=== PATIENT | male | born 1995 | race African-American/Black ===

== ENCOUNTER 2018-11-27 22:01 | Emergency (ER) | payer BC ==
[2018-11-27 22:16] VITALS: TEMP 98; BMI 35.4
[2018-11-28] MEDS ORDERED: ACETAMINOPHEN 325 MG TABLET (FP) PO ONE (00:29)
[2018-11-28] MEDS ORDERED: METOCLOPRAMIDE HCL INJECTION 10 MG/2 ML VIAL IM ONE (00:30)
[2018-11-28] MEDS ORDERED: ACETAMINOPHEN 325 MG TABLET (FP) ONE (00:39)
[2018-11-28] MEDS ORDERED: METOCLOPRAMIDE HCL INJECTION 10 MG/2 ML VIAL ONE (00:39)
--- NOTE | 2018-11-28 01:09 | PDOC ---
History of Present Illness - General Chief Complaint: Chest Pain Stated Complaint: CHEST PAIN HEADACE Time Seen by Provider: 11/27/18 23:55 History Source: Patient Exam Limitations: No Limitations Past History - Past Medical History Allergies/Adverse Reactions: Allergies Allergy/AdvReac Type Severity Reaction Status Date / Time No Known Allergies Allergy Verified 11/27/18 22:16 Home Medications: Ambulatory Orders Albuterol Sulfate Inhaler - [Ventolin HFA Inhaler -] 1 - 2 inh PO QID PRN #1 inhaler 03/05/18 Asthma: Yes COPD: No - Suicide/Smoking/Psychosocial Hx Smoking Status: No Smoking History: Never smoked Have you smoked in the past 12 months: No Number of Cigarettes Smoked Daily: 0 Information on smoking cessation initiated: No Hx Alcohol Use: No Drug/Substance Use Hx: No Substance Use Type: None *Physical Exam - Vital Signs Last Vital Signs Temp Pulse Resp BP Pulse Ox 98.0 F 95 H 16 150/87 100 11/27/18 22:14 11/27/18 22:14 11/27/18 22:14 11/27/18 22:14 11/27/18 22:14 - Physical Exam General Appearance: No: Apparent Distress Neck: positive: Supple Respiratory/Chest: positive: Lungs Clear, Normal Breath Sounds. negative: Chest Tender, Respiratory Distress Cardiovascular: positive: Regular Rhythm, Regular Rate, S1, S2. negative: Murmur Gastrointestinal/Abdominal: positive: Normal Bowel Sounds, Soft. negative: Tender, Distended, Guarding, Rebound Extremity: negative: Pedal Edema, Calf Tenderness Integumentary: positive: Normal Color Neurologic: positive: Fully Oriented, Alert, Normal Mood/Affect Moderate Sedation - Procedure Monitoring Vital Signs: Procedure Monitoring Vital Signs Temperature 98.0 F 11/27/18 22:14 Pulse Rate 95 H 11/27/18 22:14 Respiratory Rate 16 11/27/18 22:14 Blood Pressure 150/87 11/27/18 22:14 O2 Sat by Pulse Oximetry (%) 100 11/27/18 22:14 ED Treatment Course - RADIOLOGY Radiology Studies Ordered: Category Date Time Status CHEST PA & LAT [RAD] Stat Radiology 11/28/18 00:17 Taken - Medications Given in the ED: ED Medications Discontinued Medications Generic Name Dose Route Start Last Admin Trade Name Freq PRN Reason Stop Dose Admin Acetaminophen 975 mg 11/28/18 00:29 11/28/18 00:45 Tylenol - PO 11/28/18 00:30 975 mg ONCE ONE Administration Metoclopramide HCl 10 mg 11/28/18 00:30 11/28/18 00:46 Reglan Injection - IM 11/28/18 00:31 10 mg ONCE ONE Administration Medical Decision Making - Medical Decision Making 23 y/o M with hx of asthma, nonsmoker, presents with generalized RIDER from last week, constant in nature. Tried taking Tylenol which temporarily helped. States his job checked his BP last week and it was elevated (states it was checked on 2 separate days). Today, mentions having sharp nonradiating L sided CP, intermittent in nature, nonexertional and not worsened or relieved by anything. Denies drug use. Mentions his parents have high blood pressure and his dad had MD at age 53. Denies fever, URI sxs, cough, abd pain, n/v, palpitations, numbness/tingling/weakness of extremities. BP not markedly elevated (here is 150/87) EKG shows NSR at 88 bpm, no ST-T changes CXR wet read negative PERC negative Will give Tylenol/Reglan for RIDER and reassess 11/28/18 01:05 Patient no longer having RIDER after meds Repeat VS with BP 138/74, HR 75 Patient feeling better, stable for dc 11/28/18 02:17 *DC/Admit/Observation/Transfer Diagnosis at time of Disposition: Headache Qualifiers: Headache type: other headache syndrome Qualified Code(s): G44.89 - Other headache syndrome Chest pain Qualifiers: Chest pain type: unspecified Qualified Code(s): R07.9 - Chest pain, unspecified - Discharge Dispostion Disposition: HOME Condition at time of disposition: Improved Decision to Admit order: No - Referrals Referrals: Renny Ojeda MD [Primary Care Provider] - 2 Days - Patient Instructions Printed Discharge Instructions: DI for Chest Pain, Migraine -- Adult Additional Instructions: Thank you for choosing [facility]. It was a pleasure taking care of you. Your EKG and chest xray were normal It is possible you were having migraine Follow-up with your doctor in 2-3 days for further evaluation Return to the Emergency Department if your symptoms worsen or persist, you have fever, shortness of breath, chest pain, severe abdominal pain, vomiting, dizziness, weakness of extremities (arms and/or legs), changes in vision or walking or other concerning symptoms. - Post Discharge Activity
[2018-11-28 02:35] VITALS: BP 146/87; PULSE 86
--- NOTE | 2018-11-28 11:06 | EKG ---
Test Reason : Blood Pressure : / mmHG Vent. Rate : 088 BPM Atrial Rate : 088 BPM P-R Int : 130 ms QRS Dur : 092 ms QT Int : 324 ms P-R-T Axes : 042 002 025 degrees QTc Int : 392 ms NORMAL SINUS RHYTHM NORMAL ECG WHEN COMPARED WITH ECG OF 05-MAR-2018 11:49, NO SIGNIFICANT CHANGE WAS FOUND Confirmed by CANDICE HEATH MD ([id number]) on 11/28/2018 11:06:24 AM Referred By: Confirmed By:CANDICE HEATH MD
== END 2018-11-28 02:35 | disposition home or self-care (01) ==
LOC: JER 22:01
PROC: 3E023GC Introduction of Other Therapeutic Substance into Muscle, Percutaneous Approach (ICD-10-PCS; principal; 2018-11-27)
DX: R07.9 Chest pain, unspecified (principal); R51 Headache
CPT/HCPCS: 71046-TC-FY; 93005; 93010; 99283-25

== ENCOUNTER 2019-03-29 22:38 | Emergency (ER) | payer BC ==
[2019-03-29 23:16] VITALS: BP 126/72; PULSE 113; TEMP 100; BMI 35.4
--- NOTE | 2019-03-30 | PDOC ---
History of Present Illness - General Chief Complaint: Headache Stated Complaint: CHEST PAIN/SOB Time Seen by Provider: 03/29/19 23:54 - History of Present Illness Initial Comments: 03/29/19 23:58 23 yo M with h/o asthma who p/w headache. Patient reports 3-4 days of gradual, diffuse, worsening, bilateral pressure-type headache, worse with coughing, and ambulation. Denies h/o similar headache. Denies neck stiffness, scintillating scotoma, photo/phonophobia. Two days of fevers and chills. Pain not improved with Tylenol. Pain not positional. Patient denies vision change, palpitations, cough, wheezing, orthopena, PND, leg swelling/pain, N/V, CP, SOB, urinary complaints, hematuria, BPR, abdominal pain, diarrhea, constipation, lightheadedness, weakness, sensory changes. PMHx: as noted above ROS: as noted SHx: Denies Etoh, IVDA, tobacco use. Denies caffeine use. Allergies: NKDA Past History - Past Medical History Allergies/Adverse Reactions: Allergies Allergy/AdvReac Type Severity Reaction Status Date / Time No Known Allergies Allergy Verified 11/27/18 22:16 Home Medications: Ambulatory Orders Albuterol Sulfate Inhaler - [Ventolin HFA Inhaler -] 1 - 2 inh PO QID PRN #1 inhaler 03/05/18 Amoxicillin - [Amoxicillin 500mg Capsule -] 500 mg PO TID #30 capsule 03/30/19 Asthma: Yes COPD: No - Immunization History Immunization Up to Date: Yes - Suicide/Smoking/Psychosocial Hx Smoking Status: No Smoking History: Never smoked Have you smoked in the past 12 months: No Number of Cigarettes Smoked Daily: 0 Hx Alcohol Use: No Drug/Substance Use Hx: No Substance Use Type: None Review of Systems - Review of Systems Comments:: 03/29/19 23:58 GENERAL/CONSTITUTIONAL: + fever and chills. No weakness. HEAD, EYES, EARS, NOSE AND THROAT: No change in vision. No ear pain or discharge. No sore throat. CARDIOVASCULAR: No chest pain or shortness of breath RESPIRATORY: No cough, wheezing, or hemoptysis. GASTROINTESTINAL: No nausea, vomiting, diarrhea or constipation. GENITOURINARY: No dysuria, frequency, or change in urination. MUSCULOSKELETAL: No joint or muscle swelling or pain. No neck or back pain. SKIN: No rash NEUROLOGIC:+ headache. No vertigo, loss of consciousness, or change in strength/ sensation. ENDOCRINE: No increased thirst. No abnormal weight change HEMATOLOGIC/LYMPHATIC: No anemia, easy bleeding, or history of blood clots. ALLERGIC/IMMUNOLOGIC: No hives or skin allergy. *Physical Exam - Vital Signs Last Vital Signs Temp Pulse Resp BP Pulse Ox 100 F H 113 H 20 126/72 97 03/29/19 23:13 03/29/19 23:13 03/29/19 23:13 03/29/19 23:13 03/29/19 23:13 - Physical Exam Comments: 03/29/19 23:59 GENERAL: Awake, alert, and fully oriented, in no acute distress HEAD: No signs of trauma, normocephalic, atraumatic EYES: Right eye conjuctival/scleral injection. PERRLA, EOMI, sclera anicteric, ENT: White exudates, posterior orphayrnx, and tonsilar swelling. Auricles normal inspection, hearing grossly normal, nares patent, Moist mucosa NECK: Normal ROM, supple, no lymphadenopathy, JVD, or masses LUNGS: No distress, speaks full sentences, clear to auscultation bilaterally HEART: Regular rate and rhythm, normal S1 and S2, no murmurs, rubs or gallops, peripheral pulses normal and equal bilaterally. ABDOMEN: Soft, nontender, normoactive bowel sounds. No guarding, no rebound. No masses EXTREMITIES : Normal inspection, Normal range of motion, no edema. No clubbing or cyanosis. NEUROLOGICAL: Cranial nerves II through XII grossly intact. Normal speech, normal gait, no focal sensorimotor deficits. Neg Brudinsky, or Kernig sign. SKIN: Warm, Dry, normal turgor, no rashes or lesions noted ED Treatment Course - LABORATORY CBC & Chemistry Diagram: 03/30/19 00:20 03/30/19 00:20 Medical Decision Making - Medical Decision Making 03/30/19 00:34 23 yo M with h/o asthma who p/w headache. HR 113, Temp 100.0 Oral, HR 113, vitals otherwise wnl, AF, A&Ox3. Physical exam unremarkable. Absent nuchal findings, or neruo deficits on physical exam. DDx: tension, cluster type RIDER, Migraine w/out Aura, Meningitis, mass effect-malignancy, SAH. Will provide analgesic control and reassess. Ed Course: 03/30/19 01:40 Amoxicillin sent to pharmacy 03/30/19 01:40 Laboratory Tests 03/30/19 03/30/19 00:20 00:20 WBC 7.6 Hgb 14.4 Hct 42.8 Plt Count 192 Sodium 139 BUN 16.5 Creatinine 1.3 *DC/Admit/Observation/Transfer Diagnosis at time of Disposition: Headache Qualifiers: Headache type: tension-type Headache chronicity pattern: acute headache Intractability: not intractable Qualified Code(s): G44.209 - Tension-type headache, unspecified, not intractable - Referrals Referrals: Xavi Curry DO [Staff Physician] - - Patient Instructions Printed Discharge Instructions: DI for Headache Additional Instructions: Please return to the emergency department with any new or worsening symptoms or concerns. Please follow up with your primary care physician within 72 hours. - Post Discharge Activity Forms/Work/School Notes: Back to Work
[2019-03-30] MEDS ORDERED: KETOROLAC TROMETHAMINE 15 MG/ML VIAL IVPUSH ONE (00:08)
[2019-03-30] MEDS ORDERED: METOCLOPRAMIDE HCL INJECTION 10 MG/2 ML VIAL IVPUSH ONE (00:08)
[2019-03-30] MEDS ORDERED: METOCLOPRAMIDE HCL INJECTION 10 MG/2 ML VIAL ONE (00:18)
[2019-03-30] MEDS ORDERED: KETOROLAC TROMETHAMINE 15 MG/ML VIAL ONE (00:19)
[2019-03-30 00:45] LABS: BASO % 0.9 % (0-2.0); EOS % 0.3 % (0-4.5); HEMATOCRIT 42.8 % (35.4-49); HEMOGLOBIN 14.4 GM/dL (11.7-16.9); MCH 30.6 pg (25.7-33.7); MCHC 33.6 g/dl (32.0-35.9); MEAN CELL VOLUME 91.1 fl (80-96); MEAN PLT VOLUME 7.9 fl (7.5-11.1); MONO % 13.1 % (3.8-10.2); NEUT % 71.7 % (42.8-82.8); PLATELET COUNT 192 K/MM3 (134-434); RBC 4.69 M/mm3 (4.00-5.60); RDW 12.7 % (11.9-15.9); WHITE BLOOD COUNT 7.6 K/mm3 (4.0-10.0)
[2019-03-30] MEDS ORDERED: ACETAMINOPHEN 1000 MG/100 ML VIAL (NON FORMULARY) IVPB ONE (00:49)
[2019-03-30] MEDS ORDERED: ACETAMINOPHEN INJECTION 100 ML IVPB ONE (00:51)
[2019-03-30 01:22] LABS: ALBUMIN 3.9 g/dl (3.4-5.0); BLOOD UREA NITROGEN 16.5 mg/dL (7-18); CALCIUM 8.6 mg/dL (8.5-10.1); CREATININE 1.3 mg/dL (0.55-1.3); POTASSIUM 4.1 mmol/L (3.5-5.1); TOT PROT 7.6 g/dl (6.4-8.2)
--- NOTE | 2019-03-30 01:39 | PDOC ---
Documentation entered by Endy Ivey SCRIBE, acting as scribe for Mabel Wise MD. Mabel Wise MD: This documentation has been prepared by the Loni patricia Xhesika, SCRIBE, under my direction and personally reviewed by me in its entirety. I confirm that the documentation accurately reflects all work, treatment, procedures, and medical decision making performed by me. Attending Attestation - Resident Resident Name: Surinder Jameson - ED Attending Attestation I have performed the following: I have examined & evaluated the patient, The case was reviewed & discussed with the resident, I agree w/resident's findings & plan - HPI HPI: 03/30/19 01:33 The patient is a 23 year old male with a significant medical history of asthma who present to the ED with 3 days of headache, fever, and chills. The patient describes the headache as diffuse, pressure like headache, radiating to the top of the head and neck. The patient notes his headache is worsened with coughing, which has been progressively getting worse. The patient notes he took Tylenol with no relief of symptoms. 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 The patient denies chest pain, shortness of breath, and dizziness. Denies nausea , vomiting, diarrhea and constipation. Denies dysuria, frequency, urgency and hematuria. - Physicial Exam PE: 03/30/19 01:33 GENERAL: (+) morbidly obese. (+) diaphoretic. Awake, alert, and fully oriented, in no acute distress HEAD: No signs of trauma EYES: PERRLA, EOMI, sclera anicteric, conjunctiva clear ENT: Auricles normal inspection, hearing grossly normal, nares patent, oropharynx white bilat exudates. Moist mucosa NECK: Normal ROM, supple, no lymphadenopathy, JVD, or masses LUNGS: Breath sounds equal, clear to auscultation bilaterally. No wheezes, and no crackles HEART: (+) rapid heart rate. Regular rate and rhythm, normal S1 and S2, no murmurs, rubs or gallops ABDOMEN: Soft, nontender, normoactive bowel sounds. No guarding, no rebound. No masses EXTREMITIES: Normal range of motion, no edema. No flank pain. No back pain. No clubbing or cyanosis. No cords, erythema, or tenderness NEUROLOGICAL: Cranial nerves II through XII grossly intact. Normal speech, normal gait SKIN: Warm, Dry, normal turgor, no rashes or lesions noted. 03/30/19 01:38 - Medical Decision Making 03/30/19 01:38 Pt has strep throat. He will be treated with amoxil 875BID x 10 days
[2019-03-30] MEDS ORDERED: AMOXICILLIN 500 MG CAPSULE (FP) PO ONE (01:41)
[2019-03-30] MEDS ORDERED: AMOXICILLIN 500 MG CAPSULE (FP) ONE (01:48)
[2019-03-30 03:25] LABS: MAGNESIUM 2.2 mg/dL (1.8-2.4)
--- NOTE | 2019-03-30 16:05 | EKG ---
Test Reason : Blood Pressure : / mmHG Vent. Rate : 109 BPM Atrial Rate : 109 BPM P-R Int : 128 ms QRS Dur : 086 ms QT Int : 298 ms P-R-T Axes : 048 005 027 degrees QTc Int : 401 ms SINUS TACHYCARDIA POSSIBLE LEFT ATRIAL ENLARGEMENT BORDERLINE ECG WHEN COMPARED WITH ECG OF 27-NOV-2018 22:00, NO SIGNIFICANT CHANGE WAS FOUND Confirmed by CANDICE HEATH MD ([id number]) on 03/30/2019 4:05:27 PM Referred By: Confirmed By:CANDICE HEATH MD
== END 2019-03-30 02:30 | disposition home or self-care (01) ==
LOC: JER 22:38
PROC: 3E033NZ Introduction of Analgesics, Hypnotics, Sedatives into Peripheral Vein, Percutaneous Approach (ICD-10-PCS; principal; 2019-03-29)
PROC: 3E0333Z Introduction of Anti-inflammatory into Peripheral Vein, Percutaneous Approach (ICD-10-PCS; 2019-03-29)
PROC: 3E033GC Introduction of Other Therapeutic Substance into Peripheral Vein, Percutaneous Approach (ICD-10-PCS; 2019-03-29)
PROC: 3E033GC Introduction of Other Therapeutic Substance into Peripheral Vein, Percutaneous Approach (ICD-10-PCS; 2019-03-29)
DX: G44.209 Tension-type headache, unspecified, not intractable (principal)
CPT/HCPCS: 36415; 80053; 83735; 85025; 93005; 93010; 99282-25; J0131

== ENCOUNTER 2019-12-08 08:12 | Emergency (ER) | payer BC, OTHER ==
[2019-12-08 08:23] VITALS: BP 131/82; PULSE 90; TEMP 99.1; BMI 29.5
--- NOTE | 2019-12-08 08:34 | PDOC ---
Rapid Medical Evaluation Chief Complaint: Respiratory Time Seen by Provider: 12/08/19 08:21 Medical Evaluation: Allergies Allergy/AdvReac Type Severity Reaction Status Date / Time No Known Allergies Allergy Verified 12/08/19 08:23 Vital Signs Temp Pulse Resp BP Pulse Ox 99.1 F 90 16 131/82 100 12/08/19 08:15 12/08/19 08:15 12/08/19 08:15 12/08/19 08:15 12/08/19 08:15 12/08/19 08:34 HPI: The patient is a 24 y/o M with past medical history of asthma, who presents for cough, subjective fevers for 1 days The patient has no known exposure to coronavirus. (-) Recent travel. They are concerned they have coronavirus and present for testing. (-) difficulty breathing, shortness of breath, chest pain, lightheadedness, dizziness nausea, vomiting, and diarrhea. EXAM: General: NAD, well-appearing, AAO x3. Lungs: Clear to auscultation bilateral without wheezes rales or rhonchi. Normal excursion. Patient is able to speak in full sentences. Heart: Regular rate and rhythm, S1-S2 present, no murmurs rubs or gallops. Neuro: Normal gait, cranial nerves II through XII grossly intact. A/P: Cough Patient has no past medical history, denies recent travel and known COVID exposure. Patient does not meet criteria for testing at this time. Differential also includes flu. Will send tamiflu as he is within treatment window and refill inhaler. We will refer the patient to outpatient testing clinics in the [facility] for further monitoring of their symptoms. Strict return precautions given. Instructed that if they should have shortness of breath, chest pain or difficulty breathing to return to the emergency room for further management and treatment. Recommend self-isolation for 14 days given symptoms. Discharge home I discussed the physical exam findings, ancillary test results and final diagnoses with the patient. I answered all of the patient's questions. The patient was satisfied with the care received and felt comfortable with the discharge plan and treatment plan. The Patient agrees to follow up with the primary care physician/specialist within 24-72 hours. Return precautions were given. Discharge Disposition - Diagnosis Fever Qualifiers: Fever type: unspecified Qualified Code(s): R50.9 - Fever, unspecified - Discharge Dispostion Disposition: HOME Condition at time of disposition: Stable Decision to Admit order: No - Referrals Referrals: [facility] [place] [Provider Group] - Patient Instructions Printed Discharge Instructions: [facility]-Coronavirus Instructions Additional Instructions: You were seen for your cough and possible Nieves virus (COVID-19) Please call the [facility] to make an appointment for a test [phone] Take Tylenol 650mg every 4 hours as needed for fever or pain Continue taking your albuterol inhaler every 4 hours to keep your asthma at bay Take the Tamiflu as directed. You may take robitussin or other over the counter cough syrup. Follow the dosing instructions on the bottle. Warm tea, honey, and salt water gargles may help your symptoms. Please pretend like you tested positive for COVID and self quarantine for two weeks and follow up with your primary care doctor and the department of health. Return to the ER for shortness of breath, difficulty breathing, chest pain, or if you have any changes in your symptoms. s - Post Discharge Activity Work/School Note: Back to Work
== END 2019-12-08 08:54 | disposition home or self-care (01) ==
LOC: JER 08:12
DX: Z03.818 Encounter for observation for suspected exposure to other biological agents ruled out (principal); R50.9 Fever, unspecified; R05 Cough
CPT/HCPCS: 99282-25

== ENCOUNTER 2020-03-20 17:17 | Emergency (ER) | payer OTHER ==
[2020-03-20 17:32] VITALS: TEMP 98.1; BMI 35.4
[2020-03-20] MEDS ORDERED: ALBUTEROL SO4 HFA INHALER IH ONE ×2 (18:36→18:39)
--- NOTE | 2020-03-20 18:40 | PDOC ---
History of Present Illness - General Chief Complaint: Nausea/Vomiting Stated Complaint: DIFFICULTY BREATHING Time Seen by Provider: 03/20/20 18:11 History Source: Patient Exam Limitations: No Limitations - History of Present Illness Initial Comments: 03/20/20 18:37 HISTORY OF PRESENT ILLNESS: 24-year-old male past medical history of asthma presents emergency department for evaluation of left-sided chest pain for the past 24 hours. Patient reports the pain is a stabbing sensation which waxes and wanes currently 5/10. Pain is a maximum intensity of 9/10. Patient reports o gonsalo the past week he has had an urgent care and primary care visit for his asthma for which he is currently being treated with steroids. Patient reports when the pain comes he becomes increasingly short of breath and had one episode of nonbilious nonbloody vomiting prior to arrival in the emergency department. He denies fevers, chills, difficulty breathing, abdominal pain. Patient denies drug or alcohol use and works at [employer]. Patient reports he is COVID tested weekly and has had negative tests since January. Patient tested IgG positive in January for COVID antibodies. No recent travel or sick contacts. PAST MEDICAL HISTORY: See HPI SURGICAL HISTORY: Denies ALLERGIES: No known drug allergies REVIEW OF SYSTEMS General/Constitutional: Denies fever or chills. Denies weakness, weight change. HEENT: Denies change in vision. Denies ear pain or discharge. Denies sore t hroat. Cardiovascular: See HPI Respiratory: Denies cough, wheezing, or hemoptysis. Gastrointestinal: Denies nausea, vomiting, diarrhea or constipation. Denies rectal bleeding. Genitourinary: Denies dysuria, frequency, or change in urination. Musculoskeletal: Denies joint or muscle swelling or pain. Denies neck or back pain. Skin and breasts: Denies rash or easy bruising. Neurologic: Denies headache, vertigo, loss of consciousness, or loss of sensation. Psychiatric: Denies depression or anxiety. Endocrine: Denies increased thirst. Denies abnormal weight change. Hematologic/Lymphatic: Denies anemia, easy bleeding, or history of blood clots. Allergic/Immunologic: Denies hives or skin allergy. Denies latex allergy. PHYSICAL EXAM General Appearance: Well-appearing, appropriately dressed. No apparent distress, no intoxication. HEENT: EOMI, PERRLA, normal ENT inspection, normal voice, TMs normal, pharynx normal. No conjunctival pallor. No photophobia, scleral icterus. Neck: Supple. Trachea midline. No tenderness, rigidity, carotid bruit, stridor, lymphadenopathy, or thyromegaly. Respiratory/Chest: Respirations even and unlabored. Speaking full sentences. No shortness of breath, chest tenderness, respiratory distress, accessory muscle use. No crackles, rales, rhonchi, stridor, dullness. Expiratory wheezes present in all pedroza. Cardiovascular: RRR. S1, S2. No JVD, murmur, bradycardia, tachycardia. Vascular Pulses: Dorsalis-Pedis (R): 2+, Dorsalis-Pedis (L): 2+ Gastrointestinal/Abdominal: Normal bowel sounds. Abdomen soft, non-distended. No tenderness or rebound tenderness. No organomegaly, pulsatile mass, guarding, hernia, hepatomegaly, splenomegaly. Lymphatic: No adenopathy, tenderness. Musculoskeletal/Extremities: Normal inspection. FROM of all extremities, normal capillary refill. Pelvis Stable. No CVA tenderness. No tenderness to extremities, pedal edema, swelling, erythema or deformity. Integumentary: Appropriate color, dry, warm. No cyanosis, erythema, jaundice or rash Past History - Medical History Allergies/Adverse Reactions: Allergies Allergy/AdvReac Type Severity Reaction Status Date / Time No Known Allergies Allergy Verified 12/08/19 08:23 Home Medications: Ambulatory Orders Albuterol Sulfate Inhaler - [Ventolin HFA Inhaler -] 1 - 2 inh PO QID PRN #1 inhaler 03/05/18 Albuterol Sulfate Inhaler - [Ventolin HFA Inhaler -] 1 - 2 inh PO Q4H #1 inhaler 12/08/19 Oseltamivir Phosphate [Tamiflu] 75 mg PO BID #10 capsule 12/08/19 Cetirizine HCl [Zyrtec -] 10 mg PO DAILY #30 tablet 12/24/19 Methylprednisolone [Medrol Dose Raul] 4 mg PO ASDIR #21 tablet 12/24/19 Asthma: Yes COPD: No - Immunization History Immunization Up to Date: Yes - Psycho-Social/Smoking History Smoking Status: No Smoking History: Never smoked Have you smoked in the past 12 months: No Number of Cigarettes Smoked Daily: 0 - Substance Abuse Hx (Audit-C & DAST Scrn) How often the patient has a drink containing alcohol: Never Score: In Men: 4 or > Positive; In Women: 3 or > Positive: 0 Screen Result (Pos requires Nsg. Audit-10AR): Negative In the last yr the pt used illegal drug/Rx for NonMed reason: No Score: Yes response is considered Positive: 0 Screen Result (Positive result requires Nsg. DAST-10): Negative Cardiac Specific PMH - Complaint Specific PMHX Pulmonary Embolus: No *Physical Exam - Vital Signs Last Vital Signs Temp Pulse Resp BP Pulse Ox 98.1 F 66 20 124/78 97 03/20/20 17:24 03/20/20 17:24 03/20/20 17:24 03/20/20 17:24 03/20/20 17:24 Heart Score/ECG Review - History History: Slightly suspicious - Electrocardiogram EKG: Non specific repolarization disturbance - Age Age: </= 45 - Risk Factors Risk Factors Heart Score: Yes Positive family hx of cardiac disease Based on the list above the patient has:: 1-2 risk factors - Troponin Troponin: </= normal limit - Score Heart Score - Total: 2 ED Treatment Course - LABORATORY CBC & Chemistry Diagram: 03/20/20 18:45 03/20/20 18:45 - ADDITIONAL ORDERS Additional order review: Laboratory Results 03/20/20 18:45 Sodium 140 Potassium 3.8 Chloride 106 Carbon Dioxide 24 Anion Gap 10 BUN 16.7 Creatinine 1.3 Est GFR (CKD-EPI)AfAm 87.28 Est GFR (CKD-EPI)NonAf 75.30 Random Glucose 82 Calcium 8.9 Magnesium 2.3 Total Bilirubin 0.7 AST 19 ALT 29 Alkaline Phosphatase 47 Creatine Kinase 325 H Creatine Kinase Index 0.4 CK-MB (CK-2) 1.4 Troponin I < 0.02 Total Protein 7.4 Albumin 4.0 03/20/20 18:45 RBC 4.90 MCV 93.5 MCHC 33.2 RDW 12.8 MPV 7.4 L Neutrophils % 80.7 Lymphocytes % 12.3 Monocytes % 5.1 Eosinophils % 1.3 D Basophils % 0.6 - RADIOLOGY Radiology Studies Ordered: Category Date Time Status CHEST PA & LAT [RAD] Stat Radiology 03/20/20 18:32 Taken - Medications Given in the ED: ED Medications Discontinued Medications Generic Name Dose Route Start Last Admin Trade Name Freq PRN Reason Stop Dose Admin Albuterol Sulfate 2 puff 03/20/20 18:36 03/20/20 18:49 Ventolin Hfa Inhaler - IH 03/20/20 18:37 2 puff ONCE ONE Administration Medical Decision Making - Medical Decision Making 03/20/20 18:40 A/P: 24-year-old male with left-sided chest pain for 24 hours Physical exam is notable for expiratory wheezes present in all lung pedroza Laboratory testing including cardiac profile Chest x-ray EKG Albuterol MDI Urinalysis Reassess 03/20/20 20:13 Laboratory Tests 03/20/20 03/20/20 18:45 18:45 WBC 12.2 H RBC 4.90 Hgb 15.2 Hct 45.8 MCV 93.5 MCH 31.1 MCHC 33.2 RDW 12.8 Plt Count 242 D MPV 7.4 L Absolute Neuts (auto) 9.8 H Neutrophils % 80.7 Lymphocytes % 12.3 Monocytes % 5.1 Eosinophils % 1.3 D Basophils % 0.6 Nucleated RBC % 0 Sodium 140 Potassium 3.8 Chloride 106 Carbon Dioxide 24 Anion Gap 10 BUN 16.7 Creatinine 1.3 Est GFR (CKD-EPI)AfAm 87.28 Est GFR (CKD-EPI)NonAf 75.30 Random Glucose 82 Calcium 8.9 Magnesium 2.3 Total Bilirubin 0.7 AST 19 ALT 29 Alkaline Phosphatase 47 Creatine Kinase 325 H Creatine Kinase Index 0.4 CK-MB (CK-2) 1.4 Troponin I < 0.02 Total Protein 7.4 Albumin 4.0 EKG sinus rhythm with rate of 63. Normal intervals present. Inverted T wave in lead III. No ST elevations or depressions present. Chest x-ray is read by me: Angle sharp. Mildly enlarged cardiac silhouette. Lung pedroza clear without any infiltrates or consolidations noted. As patient has a normal initial troponin and a mildly elevated CK is likely due to muscle strain. Patient reports he helped a friend move and he carried a TV up couple flights of stairs during the move. I discussed the physical exam findings, ancillary test results and final diagnoses with the patient. I answered all of the patient's questions. The patient was satisfied with the care received and felt comfortable with the discharge plan and treatment plan. The patient will call their primary care physician within 24 hours to arrange follow-up and will return to the Emergency Department with any new, persistent or worsening symptoms. Portions of this note have been documented using voice recognition software. As a result, errors may occur in the electricity trading analyst process. Effort has been made to correct all grammatical and electricity trading analyst error, but some may have been missed which may produce sporadic inaccurate electricity trading analyst or nonsensical phrases. Discharge - Discharge Information Problems reviewed: Yes Clinical Impression/Diagnosis: Muscle strain of chest wall Qualifiers: Encounter type: initial encounter Qualified Code(s): S29.011A - Strain of muscle and tendon of front wall of thorax, initial encounter Condition: Fair Disposition: HOME - Admission No - Follow up/Referral Referrals: Renny Ojeda MD [Primary Care Provider] - - Patient Discharge Instructions Additional Instructions: As discussed your chest x-ray shows a mildly enlarged heart. Is important that you follow-up with your primary doctor for continued evaluation. Keep well-hydrated. Try to rest to allow muscles to return to normal. Take Tylenol or Motrin as needed for pain. Follow securities supervisor's instructions for appropriate dosage. Return to the emergency department for any new or worsening symptoms. - Post Discharge Activity Work/Back to School Note: Back to Work
[2020-03-20 18:55] LABS: BASO % 0.6 % (0-2.0); EOS % 1.3 % (0-4.5); HEMATOCRIT 45.8 % (35.4-49); HEMOGLOBIN 15.2 GM/dL (11.7-16.9); LYMPH % 12.3 % (8-40); MCH 31.1 pg (25.7-33.7); MCHC 33.2 g/dl (32.0-35.9); MEAN CELL VOLUME 93.5 fl (80-96); MEAN PLT VOLUME 7.4 fl (7.5-11.1); MONO % 5.1 % (3.8-10.2); NEUT % 80.7 % (42.8-82.8); PLATELET COUNT 242 K/MM3 (134-434); RDW 12.8 % (11.9-15.9); WHITE BLOOD COUNT 12.2 K/mm3 (4.0-10.0)
[2020-03-20 19:48] LABS: ALK PHOS 47 U/L (45-117); ANION GAP 10 MMOL/L (8-16); BILIRUBIN,TOTAL 0.7 mg/dL (0.2-1); BLOOD UREA NITROGEN 16.7 mg/dL (7-18); CALCIUM 8.9 mg/dL (8.5-10.1); CHLORIDE 106 mmol/L (98-107); CO2 24 mmol/L (21-32); CREATININE 1.3 mg/dL (0.55-1.3); GLUCOSE,RANDOM 82 mg/dL (74-106); MAGNESIUM 2.3 mg/dL (1.8-2.4); POTASSIUM 3.8 mmol/L (3.5-5.1); SGOT/AST 19 U/L (15-37); SGPT/ALT 29 U/L (13-61); SODIUM 140 mmol/L (136-145); TOT PROT 7.4 g/dl (6.4-8.2)
[2020-03-20 20:21] LABS: PH,URINE 8.5 (5.0-8.0); URINE APPEARANCE CLEAR; URINE BILIRUBIN NEGATIVE (NEGATIVE); URINE COLOR YELLOW; URINE GLUCOSE (UA) NEGATIVE (NEGATIVE); URINE KETONE NEGATIVE (NEGATIVE); URINE LEUK ESTERASE NEGATIVE (NEGATIVE); URINE NITRITE NEGATIVE (NEGATIVE); URINE PROTEIN NEGATIVE (NEGATIVE)
[2020-03-20 21:52] VITALS: BP 122/70; PULSE 71
--- NOTE | 2020-03-22 14:11 | EKG ---
Test Reason : Blood Pressure : / mmHG Vent. Rate : 063 BPM Atrial Rate : 063 BPM P-R Int : 130 ms QRS Dur : 084 ms QT Int : 376 ms P-R-T Axes : 039 003 013 degrees QTc Int : 384 ms NORMAL SINUS RHYTHM NORMAL ECG WHEN COMPARED WITH ECG OF 24-DEC-2019 17:19, NO SIGNIFICANT CHANGE WAS FOUND Confirmed by JACKIE NAVARRETE MD ([id number]) on 03/22/2020 2:11:15 PM Referred By: REGIS Confirmed By:JACKIE NAVARRETE MD
== END 2020-03-20 20:35 | disposition home or self-care (01) ==
LOC: JER 17:17
PROC: 3E0F7GC Introduction of Other Therapeutic Substance into Respiratory Tract, Via Natural or Artificial Opening (ICD-10-PCS; principal; 2020-03-20)
DX: S29.011A Strain of muscle and tendon of front wall of thorax, initial encounter (principal); Y99.9 Unspecified external cause status
CPT/HCPCS: 36415; 71046-TC-FY; 80053; 81003; 82550; 82553; 83735; 84484; 85025; 93005; 93010; 99285-25

== ENCOUNTER 2021-01-23 00:30 | Emergency (ER) | payer OTHER ==
[2021-01-23] MEDS ORDERED: morphine CARPU-JECT 2 MG/1 ML DISP.SYRIN IVPUSH ONE (00:55)
[2021-01-23] MEDS ORDERED: ACETAMINOPHEN 500 MG TABLET (FP) PO ONE (00:58)
[2021-01-23] MEDS ORDERED: DIPHTH,PERTUSS(ACELL),TET 0.5 ML DISP.SYRIN IM ONE ×2 (00:58→02:29)
[2021-01-23] MEDS ORDERED: ACETAMINOPHEN INJECTION 100 ML IVPB ONE ×2 (01:06→01:10)
[2021-01-23] MEDS ORDERED: LIDOCAINE 1%/EPI 1:100000 (20 ML MULTI DOSE VIAL) INF ONE (01:09)
[2021-01-23] MEDS ORDERED: LIDOCAINE 1%/EPI 1:100000 (20 ML MULTI DOSE VIAL) ONE (01:10)
[2021-01-23 01:15] VITALS: TEMP 97.8; BMI 35.4
[2021-01-23] MEDS ORDERED: MIDAZOLAM HCL 2 MG/2 ML SINGLE DOSE VIAL IVPUSH ONE (01:37)
[2021-01-23] MEDS ORDERED: MIDAZOLAM HCL 2 MG/2 ML SINGLE DOSE VIAL ONE (01:43)
[2021-01-23] MEDS ORDERED: LIDOCAINE HCL 2% JELLY 10 ML CARTRIDGE ONE (01:56)
[2021-01-23] MEDS ORDERED: LIDOCAINE HCL 2% JELLY 10 ML CARTRIDGE TP ONE (02:26)
[2021-01-23] MEDS ORDERED: ACETAMINOPHEN 1000 MG/100 ML VIAL (NON FORMULARY) IVPB ONE (02:45)
[2021-01-23 03:04] VITALS: BP 126/87; PULSE 89
== END 2021-01-23 03:05 | disposition home or self-care (01) ==
LOC: JER 00:30
PROC: 0CQ03ZZ Repair Upper Lip, Percutaneous Approach (ICD-10-PCS; principal; 2021-01-23)
PROC: 3E0333Z Introduction of Anti-inflammatory into Peripheral Vein, Percutaneous Approach (ICD-10-PCS; 2021-01-23)
PROC: 3E0234Z Introduction of Serum, Toxoid and Vaccine into Muscle, Percutaneous Approach (ICD-10-PCS; 2021-01-23)
PROC: 3E033NZ Introduction of Analgesics, Hypnotics, Sedatives into Peripheral Vein, Percutaneous Approach (ICD-10-PCS; 2021-01-23)
DX: S01.512A Laceration without foreign body of oral cavity, initial encounter (principal); S01.511A Laceration without foreign body of lip, initial encounter
CPT/HCPCS: 90715; 99284-25; J0131

== ENCOUNTER 2021-07-19 01:14 | Emergency (ER) | payer OTHER ==
[2021-07-19 01:24] VITALS: BP 136/82; PULSE 84; TEMP 98.6; BMI 36.1
[2021-07-19] MEDS ORDERED: ALBUTEROL SO4 2.5/IPRATROPIUM 0.5 INH SOL 3 ML VIAL.NEB. NEB ONE ×2 (01:59→02:47)
[2021-07-19] MEDS ORDERED: predniSONE 20 MG TABLET (UD) PO ONE (03:47)
[2021-07-19] MEDS ORDERED: predniSONE 20 MG TABLET (UD) ONE (04:09)
== END 2021-07-19 04:12 | disposition home or self-care (01) ==
LOC: JER 01:14
PROC: 3E0F7GC Introduction of Other Therapeutic Substance into Respiratory Tract, Via Natural or Artificial Opening (ICD-10-PCS; principal; 2021-07-19)
DX: J45.21 Mild intermittent asthma with (acute) exacerbation (principal)
CPT/HCPCS: 71046-TC-FY; 99284-25; C9803; U0003; U0005

== ENCOUNTER 2022-06-04 15:47 | Emergency (ER) | payer OTHER ==
[2022-06-04 16:09] VITALS: BP 125/81; PULSE 104; RESP 19; TEMP 98.3; BMI 34.4
[2022-06-04] MEDS ORDERED: IBUPROFEN 600 MG TABLET (FP) PO ONE ×2 (16:51→16:52)
== END 2022-06-04 18:37 | disposition home or self-care (01) ==
LOC: JERFT 15:47
DX: M79.89 Other specified soft tissue disorders (principal)
CPT/HCPCS: 73110-TC-RT-FY; 73130-TC-RT-FY; 99283-25

== ENCOUNTER 2022-09-30 09:50 | Emergency (ER) | payer OTHER ==
[2022-09-30 10:03] VITALS: BP 143/97; PULSE 91; RESP 20; TEMP 98.9; BMI 34.7
[2022-09-30] MEDS ORDERED: ALBUTEROL SO4 2.5/IPRATROPIUM 0.5 INH SOL 3 ML VIAL.NEB. NEB ONE ×2 (10:19→10:31)
== END 2022-09-30 12:25 | disposition home or self-care (01) ==
LOC: FER 09:50
PROC: 3E0F7GC Introduction of Other Therapeutic Substance into Respiratory Tract, Via Natural or Artificial Opening (ICD-10-PCS; principal; 2022-09-30)
DX: J45.21 Mild intermittent asthma with (acute) exacerbation (principal)
CPT/HCPCS: 99283-25

== ENCOUNTER 2022-10-23 16:56 | Emergency (ER) | payer OTHER ==
[2022-10-23 17:06] VITALS: BP 131/88; PULSE 82; RESP 18; TEMP 98.1; BMI 35.4
[2022-10-23] MEDS ORDERED: KETOROLAC TROMETHAMINE 30 MG/1 ML VIAL IM ONE (17:19)
[2022-10-23] MEDS ORDERED: KETOROLAC TROMETHAMINE 30 MG/1 ML VIAL ONE (17:21)
[2022-10-23] MEDS ORDERED: ACETAMINOPHEN 500 MG TABLET (FP) PO ONE (17:48)
[2022-10-23] MEDS ORDERED: ACETAMINOPHEN 500 MG TABLET (FP) ONE (18:06)
== END 2022-10-23 19:15 | disposition home or self-care (01) ==
LOC: JER 16:56
PROC: 3E0233Z Introduction of Anti-inflammatory into Muscle, Percutaneous Approach (ICD-10-PCS; principal; 2022-10-23)
DX: S80.02XA Contusion of left knee, initial encounter (principal); W22.8XXA Striking against or struck by other objects, initial encounter
CPT/HCPCS: 73562-TC-LT-FY; 99284-25

== ENCOUNTER 2023-12-05 23:15 | Emergency (ER) | payer OTHER ==
[2023-12-05 23:49] VITALS: RESP 20; BMI 35.4
[2023-12-06] MEDS ORDERED: METOCLOPRAMIDE HCL INJECTION 10 MG/2 ML VIAL ONE (01:07)
[2023-12-06] MEDS ORDERED: ACETAMINOPHEN INJECTION 100 ML IVPB ONE (01:07)
[2023-12-06] MEDS: LACTATED RINGERS SOLUTION 1000 ML INFUS.BAG IV ONE (01:25)
[2023-12-06] MEDS: METOCLOPRAMIDE HCL INJECTION 10 MG/2 ML VIAL IVPUSH ONE (01:26)
[2023-12-06] MEDS: ACETAMINOPHEN 1000 MG/100 ML BAG IVPB ONE (01:26)
[2023-12-06 01:44] LABS: CALCIUM 8.9 mg/dL (8.5-10.1)
[2023-12-06 01:45] LABS: ALBUMIN 3.6 g/dl (3.4-5.0); BLOOD UREA NITROGEN 12.9 mg/dL (7-18); MAGNESIUM 2.3 mg/dL (1.8-2.4)
[2023-12-06 01:49] LABS: TOT PROT 7.2 g/dl (6.4-8.2)
[2023-12-06 01:50] LABS: BILIRUBIN,TOTAL 0.6 mg/dL (0.2-1)
[2023-12-06 02:11] LABS: BASO % 0.6 % (0-2.0); EOS % 2.7 % (0-4.5); HEMATOCRIT 43.3 % (35.4-49); HEMOGLOBIN 14.6 GM/dL (11.7-16.9); LYMPH % 24.6 % (8-40); MCHC 33.8 g/dl (32.0-35.9); MEAN CELL VOLUME 94.8 fl (80-96); MEAN PLT VOLUME 7.4 fl (7.5-11.1); NEUT % 66.1 % (42.8-82.8); PLATELET COUNT 263 10^3/uL (134-434); RBC 4.57 M/mm3 (4.00-5.60); RDW 13.1 % (11.9-15.9); WHITE BLOOD COUNT 8.7 K/mm3 (4.0-10.0)
[2023-12-06 05:37] VITALS: BP 108/65; PULSE 66; TEMP 97.9
== END 2023-12-06 06:07 | disposition home or self-care (01) ==
LOC: JER 23:15
PROC: 3E030NZ Introduction of Analgesics, Hypnotics, Sedatives into Peripheral Vein, Open Approach (ICD-10-PCS; principal; 2023-12-06)
PROC: 3E030GC Introduction of Other Therapeutic Substance into Peripheral Vein, Open Approach (ICD-10-PCS; 2023-12-06)
DX: R51.9 Headache, unspecified (principal); R42 Dizziness and giddiness; R11.0 Nausea; R26.81 Unsteadiness on feet
CPT/HCPCS: 36415; 70450-TC; 70496-TC; 70498-TC; 80053; 83735; 85025; 93005; 93010; 99285-25; J0131

== ENCOUNTER 2024-03-14 17:41 | Emergency (ER) | payer OTHER ==
[2024-03-14 18:03] VITALS: BP 132/75; PULSE 100; RESP 21; TEMP 97.9; BMI 36.1
[2024-03-14] MEDS ORDERED: predniSONE 20 MG TABLET (UD) PO ONE (18:11)
[2024-03-14] MEDS ORDERED: predniSONE 20 MG TABLET (UD) ONE (18:26)
[2024-03-14] MEDS ORDERED: ALBUTEROL SO4 2.5/IPRATROPIUM 0.5 INH SOL 3 ML VIAL.NEB. NEB ONE (18:26)
[2024-03-14] MEDS ORDERED: ALBUTEROL SO4 2.5/IPRATROPIUM 0.5 INH SOL 3 ML VIAL.NEB. NEB SCH (18:30)
== END 2024-03-14 18:45 | disposition home or self-care (01) ==
LOC: JER 17:41
DX: R06.02 Shortness of breath (principal); J45.909 Unspecified asthma, uncomplicated; Z20.822 Contact with and (suspected) exposure to COVID-19
CPT/HCPCS: 0241U-QW; 99283-25

== ENCOUNTER 2024-12-04 15:46 | Emergency (ER) | payer OTHER ==
[2024-12-04 16:01] VITALS: BP 138/103; PULSE 117; RESP 28; BMI 35.4
== END 2024-12-04 17:35 | disposition home or self-care (01) ==
LOC: JER 15:46
DX: F43.20 Adjustment disorder, unspecified (principal); R06.02 Shortness of breath; J45.909 Unspecified asthma, uncomplicated
CPT/HCPCS: 99283-25

== ENCOUNTER 2025-02-12 14:49 | Emergency (ER) | payer OTHER ==
[2025-02-12 14:57] VITALS: TEMP 98.4; BMI 35.4
[2025-02-12] MEDS ORDERED: ALBUTEROL SO4 2.5/IPRATROPIUM 0.5 INH SOL 3 ML VIAL.NEB. NEB ONE (15:19)
[2025-02-12] MEDS ORDERED: predniSONE 20 MG TABLET (UD) ONE (15:20)
[2025-02-12] MEDS: predniSONE 20 MG TABLET (UD) PO ONE (15:27)
[2025-02-12] MEDS: ALBUTEROL SO4 2.5/IPRATROPIUM 0.5 INH SOL 3 ML VIAL.NEB. NEB SCH (15:27)
[2025-02-12] MEDS: SODIUM CHLORIDE 1,000 ML IV STA (16:15)
[2025-02-12 16:37] LABS: ABSOLUTE IMMATURE GRANULOCYTES 0.07 x10^3/uL (0.0-0.031); BASOPHILS # 0.11 x10^3/uL (0.01-0.08); EOSINOPHIL % 0.6 % (0.8-7.0); EOSINOPHILS # 0.08 x10^3/uL (0.04-0.54); HEMATOCRIT 48.5 % (40.1-51.0); HEMOGLOBIN 16.1 g/dL (13.7-17.5); MCHC 33.2 g/dl (32.3-36.5); MEAN CELL VOLUME 94.5 fl (79.0-92.2); MEAN PLT VOLUME 8.9 fl (9.4-12.4); MONOCYTE # 0.79 x10^3/uL (0.30-0.82); MONOCYTE % 6.2 % (5.3-12.2); PLATELET COUNT 329 x10^3/uL (163-337)
[2025-02-12 16:50] LABS: PH,URINE >= 9.0 (5.0-8.0); URINE APPEARANCE CLEAR; URINE BILIRUBIN NEGATIVE (NEGATIVE); URINE COLOR YELLOW; URINE GLUCOSE (UA) NEGATIVE (NEGATIVE); URINE KETONE TRACE (NEGATIVE); URINE LEUK ESTERASE NEGATIVE (NEGATIVE); URINE NITRITE NEGATIVE (NEGATIVE); URINE PROTEIN TRACE (NEGATIVE); URINE UROBILINOGEN 0.2 mg/dL (0.2-1.0)
[2025-02-12 17:24] LABS: POTASSIUM 3.7 mmol/L (3.5-5.1)
[2025-02-12 17:27] LABS: CALCIUM 9.6 mg/dL (8.5-10.1)
[2025-02-12 17:28] LABS: ALBUMIN 4.2 g/dl (3.4-5.0); BLOOD UREA NITROGEN 14.6 mg/dL (7-18)
[2025-02-12 17:31] LABS: CREATININE 1.3 mg/dL (0.55-1.3)
[2025-02-12 17:32] LABS: BILIRUBIN,TOTAL 1.5 mg/dL (0.2-1)
[2025-02-12 17:55] LABS: HCV DIAGNOSTIC IN-HOUSE W/RFLX NON-REACTIVE (NONREACTIVE)
[2025-02-12 17:56] LABS: HIV INTERPRETATION NEGATIVE (NEGATIVE)
[2025-02-12 18:14] VITALS: BP 130/75; PULSE 99; RESP 18
== END 2025-02-12 17:58 | disposition home or self-care (01) ==
LOC: JER 14:49
PROC: 3E0337Z Introduction of Electrolytic and Water Balance Substance into Peripheral Vein, Percutaneous Approach (ICD-10-PCS; principal; 2025-02-12)
PROC: 3E0F7GC Introduction of Other Therapeutic Substance into Respiratory Tract, Via Natural or Artificial Opening (ICD-10-PCS; 2025-02-12)
DX: J45.21 Mild intermittent asthma with (acute) exacerbation (principal); F41.0 Panic disorder [episodic paroxysmal anxiety]; R06.02 Shortness of breath
CPT/HCPCS: 36415; 71046-TC-FY; 80053; 81003; 83690; 85025; 86803; 87086; 87389; 99284-25